=== PATIENT | female | born 1975 | race Caucasian/White ===

== ENCOUNTER → 2019-10-28 | Outpatient (CLI) | payer BC ==
[~2019-10-28] MED LIST: ADAL40SY SQ; HYDR-2761 PO; HYDR-3164 PO; IBUP-1027 PO; IBUP-1060 PO; METH-38 PO; NAPR-514 PO; PRED20TA PO
[2019-10-28 11:02] LABS: BASO # 0.1 x10^3/uL (0.0-0.2); BASO % 1 % (0-3); EOS # 0.1 x10^3/uL (0.0-0.7); EOS % 1 % (0-3); HEMATOCRIT 40.7 % (36.0-47.0); HEMOGLOBIN 14.2 g/dL (12.0-15.5); LYMPH # 3.4 x10^3/uL (1.0-4.8); LYMPH % 33 % (24-48); MEAN CORPUSCULAR HEMOGLOBIN 30 pg (25-35); MEAN CORPUSCULAR HGB CONC 35 g/dL (31-37); MEAN CORPUSCULAR VOLUME 88 fL (79-100); MONO # 0.5 x10^3/uL (0.0-1.1); MONO % 5 % (0-9); NEUT # 6.1 x10^3/uL (1.8-7.7); NEUT % 60 % (31-73); PLATELET COUNT 268 x10^3/uL (140-400); RED BLOOD COUNT 4.65 x10^6/uL (3.50-5.40); RED CELL DISTRIBUTION WIDTH 13.2 % (11.5-14.5); WHITE BLOOD COUNT 10.2 x10^3/uL (4.0-11.0)
[2019-10-28 11:36] LABS: ALBUMIN 4.3 g/dL (3.4-5.0); CALCIUM 9.9 mg/dL (8.5-10.1); CREATININE 0.8 mg/dL (0.6-1.0); GFR 77.9; POTASSIUM 3.5 mmol/L (3.5-5.1); TOTAL BILIRUBIN 0.5 mg/dL (0.2-1.0); TOTAL PROTEIN 8.5 g/dL (6.4-8.2)
== END | disposition home or self-care (01) ==
LOC: SURGPAT 10:14
PROVIDERS: ATTEND Neurological Surgery
DX: Z01.812 Encounter for preprocedural laboratory examination (principal); Z20.828 Contact with and (suspected) exposure to other viral communicable diseases; M51.17 Intervertebral disc disorders with radiculopathy, lumbosacral region
CPT/HCPCS: 80053; 85025; 87641; U0003

== ENCOUNTER 2019-11-01 07:28 | Day surgery (SDC) | payer BC ==
--- NOTE | 2019-10-31 15:19 | HP ---
ADMIT DATE: 11/01/2019 DATE OF SURGERY: 11/01/2019 HISTORY OF PRESENT ILLNESS: The patient is a 44-year-old who has difficulty with left buttock, posterior thigh and leg pain. She said the problem began in 01/2019 after taking yoga class and then traveling a long distance in the car for [employer]. Initially, the pain was in both of her hips. She went to the Emergency Room in March and she was given oral steroids. The right hip pain resolved; however, the left hip pain continued. She saw an orthopedic surgeon and underwent surgery in July, which included a labrum repair. She said she did not improve from this and that the pain worsened and began to travel down her posterior thigh and leg. She says her pain is severe and can reach a 10/10. Her pain has significantly increased with sitting. Standing and lying down is more comfortable. She has had multiple rounds of oral steroids, which do help minimally. She has been off work since July because she is unable to sit without severe pain. She has seen a chiropractor with no benefit. PAST MEDICAL HISTORY: Crohn's disease. PAST SURGICAL HISTORY: A left labrum repair in 2019 and a small-bowel obstruction in 2010, 2012, and 2019. SOCIAL HISTORY: She is employed at a [employer] dispatcher. She is . She exercises weekly. She denies tobacco use. She drinks alcohol or 2 weeks per month. ALLERGIES: No known drug allergies. CURRENT MEDICATIONS: Tylenol, naproxen, prednisone, Humira, multivitamin and vitamin D. REVIEW OF SYSTEMS: A 12-point review of systems was obtained and is noncontributory except that mentioned above. PHYSICAL EXAMINATION: NEUROSURGERY EXAMINATION: GENERAL APPEARANCE: Alert, pleasant, no acute distress. HEAD: Normocephalic, atraumatic. SKIN: Warm and dry. MUSCULOSKELETAL: Lumbar paraspinal muscle bulk is normal, restricted range of motion of the lumbar spine, [id number] tenderness of lower lumbar spine with palpation, normal range of motion of the lower extremities bilaterally. EXTREMITIES: No clubbing, cyanosis or edema. NEUROLOGIC: Alert and oriented x 3, normal recent and remote memory. Strength 5/5 in bilateral lower extremities, sensory was intact to light touch in bilateral lower extremities. Reflexes are present and symmetric in lower extremities bilaterally, positive straight leg raising on the left, at 5 degrees; negative straight leg raising on the right; antalgic gait. IMAGING: I reviewed a lumbar MRI scan. On that study, there is a large herniated disc at L5-S1 on the left with nerve root compression. ASSESSMENT: Intervertebral disc disorders with radiculopathy, lumbosacral region. PLAN: She has a left lumbar radiculopathy with large herniated disc at L5-S1 on the left. The problem has been present since January 2019. She is not improving with rest, steroids or chiropractic treatment. Her pain is severe. She is unable to work currently. I do not feel she would significantly improve with any further conservative treatments. I have recommended a microdiscectomy at L5-S1 on the left. We spoke about the rationale, technique and risks as well as the expected postoperative course. She understands. She would like to go ahead. We will make the arrangements. MIGUEL GE MD DR: NEEMA/deep JOB#: [id number] / [id number] JANE
[~2019-11-01 07:28] MED LIST changes: +BACITRACIN 50,000 UNIT in IV NORMAL SALINE 1000ML BAG 1,000 ML IRR ONE; +BUPIVACAINE-EPI 0.5%-1:200000 MPF 30 ML VIAL. ONE; +GELATIN SPONGE SIZE 100. ONE; -HYDR-3164 PO; +HYDROmorphone 2 MG/ML VIAL IV PRN; +IV RINGERS,LACTATED 1000ML 1,000 ML IV SCH; +KETOROLAC 60 MG/2 ML VIAL. ONE; -METH-38 PO; +MORPHINE SULFATE 2 MG/ML VIAL. IV PRN; +ONDANSETRON PF 4 MG/2 ML VIAL. IV PRN; +PROCHLORPERAZINE 10 MG/2 ML VIAL. IV PRN; +THROMBIN TOPICAL 20,000 UNIT SPRAY.SYRN KIT TP ONE; +ceFAZolin 2GM PREMIX 2 GM/50 ML BAG IV ONE; +fentaNYL PF VIAL 100 MCG/2 ML VIAL IV PRN
[2019-11-01] MEDS ORDERED: DEXAMETHASONE SOD PHOS 20 MG/5 ML VIAL. ONE (08:08)
[2019-11-01] MEDS ORDERED: PROPOFOL 10 MG/ML (20ML) VIAL. IV ONE (08:08)
[2019-11-01] MEDS ORDERED: LIDOCAINE 2% PF 5 ML VIAL. ONE (08:08)
[2019-11-01] MEDS ORDERED: ONDANSETRON PF 4 MG/2 ML VIAL. ONE (08:08)
[2019-11-01] MEDS ORDERED: PHENYLEPHRINE 10 MG/ML VIAL. ONE (08:08)
[2019-11-01] MEDS ORDERED: REMIFENTANIL 2 MG VIAL. IV ONE (08:08)
[2019-11-01] MEDS ORDERED: SUCCINYLCHOLINE 200 MG/10 ML VIAL. ONE (08:09)
[2019-11-01] MEDS ORDERED: MIDAZOLAM HCL/PF 2 MG/2 ML VIAL. ONE (08:09)
[2019-11-01] MEDS ORDERED: ROCURONIUM 50 MG/5 ML VIAL. ONE (08:09)
[2019-11-01] MEDS ORDERED: PROPOFOL 50 ML IV ONE ×2 (08:13→09:43)
[2019-11-01] MEDS ORDERED: ePHEDrine PF IN SALINE 50 MG/10 ML SYRINGE. IV ONE (09:26)
[2019-11-01] MEDS ORDERED: DESFLURANE 61 TO 120 MINUTES IH ONE (10:14)
[2019-11-01] MEDS ORDERED: fentaNYL PF VIAL 100 MCG/2 ML VIAL ONE ×2 (11:06→12:00)
--- NOTE | 2019-11-01 11:09 | DISCH ---
DISCHARGE INSTRUCTIONS Condition on Discharge Condition on Discharge: Stable Activity After Discharge Activity Instructions for Disc: Activity as tolerated, Avoid exertion Other activity instructions: no driving for a week Bathing Instructions: Shower-keep dressing dry Lifting Instructions after Dis: No heavy lifting, No pulling or pushing, Do not lift >10 pounds Diet after Discharge Additional Diet Restrictions: resume home diet Wound Incision Care Wound/Incision Care: Ice to area for comfort Other wound/incision instructi: may remove dressing in 48 hours if dry, leave steri strips Contacting the DRSergio after DC Call your doctor for: Concerns you may have Follow-Up Follow up with: Dr. eG's nurse in 2 weeks [phone] MIGUEL GE MD Nov 01, 2019 11:09
[2019-11-01] MEDS ORDERED: HYDR-3164 PO (11:10)
[2019-11-01] MEDS ORDERED: METH-38 PO (11:10)
[2019-11-01 11:55] VITALS: BP 131/74
[2019-11-01] MEDS ORDERED: HYDROcodone/APAP 5/325MG 1 TAB TABLET PO ONE (12:00)
[2019-11-01] MEDS: fentaNYL PF VIAL 100 MCG/2 ML VIAL IV PRN ×2 (12:02→12:19)
--- NOTE | 2019-11-01 12:41 | OP ---
DATE OF SURGERY: 11/01/2019 PREOPERATIVE DIAGNOSES: Herniated lumbar disc L5-S1 with large inferior fragment and severe left lumbar radiculopathy. POSTOPERATIVE DIAGNOSIS: Herniated lumbar disc, L5-S1 with large inferior fragment and severe left lumbar radiculopathy. OPERATIONS PERFORMED: Hemilaminotomy and microdiscectomy L5-S1, left. The operation was done with EMG monitoring, SSEP monitoring, fluoroscopy, and microscopic dissection. SURGEON: Tj Ge M.D. YOUTH SERVICES SPECIALIST: GERTRUDE Astudillo, assisted with the surgery. She assisted with the exposure, the microdiscectomy as well as the closure. OPERATIVE INDICATIONS: The patient is a pleasant 44-year-old who developed severe intractable back and left leg pain, which was present for more than 6 months. She was treated conservatively, initially it was thought there was a left hip injection. She underwent left hip surgery, which did not help her. She has been off work for several months. She has had chiropractic treatment. The problem has not improved. I reviewed her MRI scan and I felt that surgery was indicated. I discussed with her the surgery and the risks of the operation. I emphasized the fact that this had been present for a considerable period, which could permanently damage the nerve based on the amount of pain she was experiencing. Overall, I was optimistic and felt that this could be done safely and that she could have a good result. DESCRIPTION OF PROCEDURE: Following general endotracheal anesthesia, the patient was positioned prone on the Jeffy table. Lumbar region prepped and draped in standard fashion. ZENIA hose and AV impulse boots were applied for DVT prophylaxis. The microscope was draped. Fluoroscopy was draped and brought into the field. Monitoring was established. Ancef 2 g was given less than 1 hour prior to initiation of the surgery. Using fluoroscopic guidance, a midline incision was made directly over the L5-S1 interspace, dissected down through subcutaneous tissue, reflected the paraspinal muscles and placed a [place] microdisk retractor. We used a 95 mm retractor. I brought in the high speed air drill and the microscope and the remainder of surgery was done with the microscope using microscopic technique. I burred down a generous hemilaminotomy and a very generous partial foraminotomy. I then worked down to the disc space and below and after trimming away ligamentum flavum, gently retracted the root medially. Beneath the root, there was inferior herniated disc and I began to grasp and tease and pull back and remove the disc fragments. There were 2 very large fragments followed by smaller fragments. The disc space had further disc material which was removed. As we worked, we had an excellent decompression. I irrigated copiously with antibiotic solution, explored carefully, the root was quite free. I explored carefully. There were no retained fragments. I irrigated copiously, obtained perfect hemostasis and then I closed the wound in layers with absorbable suture and the skin was closed with a 4-0 subcuticular stitch. The operation went very well. The patient awakened uneventfully and I was quite pleased with the surgery. TJ GE MD DR: NEEMA/deep JOB#: [id number] / [id number] JANE
--- NOTE | 2019-11-04 15:08 | PATHOLOGY ---
[facility] Accession Number: [id number] . 01 Material submitted: . vertebral column - LUMBAR DISC AND DECOMPRESSION . 01 Clinical history: . LUMBAR HERNIATED DISC WITH RADICULOPATHY . 02 Diagnosis: Segments of fibrocartilaginous and fibroadipose tissue and bone, lumbar disc and decompression: - Degenerative changes of fibrocartilaginous tissue. (JPM:renzo; 11/04/2019) S 11/04/2019 1123 Local . 02 Comment: There is no evidence of an acute inflammatory process or malignancy. (JPM:renzo; 11/04/2019) . 02 Electronically signed: . Ashok Flores MD, Pathologist NPI- [id number] . 01 Gross description: . The specimen is received in formalin, labeled "Margy Agrawal, lumbar disc and decompression". Received are multiple segments of pink-waggoner fibrous gritty tissue admixed with small fragments of bone measuring 4.2 x 3.8 x 0.9 cm in aggregate dimensions. The specimen is submitted representatively in cassette A1, following decalcification. ([facility]; 11/01/2019) QAC/QAC 11/04/2019 1122 Local . 02 Pathologist provided ICD-10: M51.36 . 02 CPT . 953535, [id number] Specimen Comment: A courtesy copy of this report has been sent to [phone] Specimen Comment: [id number] Specimen Comment: Report sent to / DR NOBLE Performed at: 01 [facility] [address], [place], [place] [id number] MD Ethan Sloan MD Phone: [phone] Performed at: 02 [facility] [address] [place], [place] [id number] MD Ashok Flores MD Phone: [phone]
== END 2019-11-01 13:10 | disposition home or self-care (01) ==
LOC: SURG 07:28 → EDUNIT# 08:30 → SURG 13:10
PROVIDERS: ATTEND Neurological Surgery
DX: M51.16 Intervertebral disc disorders with radiculopathy, lumbar region (principal); Z79.899 Other long term (current) drug therapy
CPT/HCPCS: 63030; 81025; 88304; 88311; 97161; A7015; J0330; J0690; J1100; J1885; J2250; J2405; J2704; J3010; J7030; J7120; 76000; J2370